=== PATIENT | male | born 1955 | race Caucasian/White ===

== ENCOUNTER 2018-08-26 09:41 | Outpatient (RCR) | payer MEDICARE, OTHER ==
--- NOTE | 2018-08-03 09:17 | NUR ---
07/31/18 Patient in today for Treatment team. Pt presents clean and neat, alert and oriented x 4. Pt in a pleasant mood. Pt states he has some anger issues at his new [facility] but that he ledy well with it. Pt states the program is helping him. Pt denies any suicidal thoughts at present time. Pt will continue with IOP 3x/week. Pt will follow up in one month. Treatment team concluded.
--- NOTE | 2018-08-06 08:54 | NUR ---
08/05/18 1245 As per patients RETIREMENT, pt will not be in tomorrow because he has an appointment to get a hearing aide.
--- NOTE | 2018-08-20 07:16 | NUR ---
08/18/18 0847 Patient in office stating he has sharp pain on his left side under his rib cage. Pt states it is a 5/10 when he moves. Pt states if he is sitting still, it doesn't bother him. Pt states the med tech at his [facility] is aware. Pt states it hasn't gotten worse. Pt's vitals: BP 131/81, P 84 rr 16 T 98.3 Pt skin color is warm pink and dry. Pt states he has constipation and hemorrhoids. Pt states med tech is aware and recieves medication for this. Pt advised to rest and if it becomes worse to make RN aware. RN states a call will be made to the [facility] to make Dr Eduardo aware. Will continue to monitor pt throughout the day. 1430 Call to [facility] to make Sybil aware of pt's symptoms. Sybil states that the pt has just arrived and he will be assessed. Will continue to follow up.
[~2018-08-26 09:41] MED LIST: ARICEPT10 MG PO; ASPIRIN LOW81 M1 PO; ATORVASTATIN CA40 MG PO; BENZTROPINE1 MG PO; BENZTROPINE2 MG PO; BUPROPION300 MG PO; CLOPIDOGREL75 MG PO; DEPAKOTE ER250 M1; DONEPEZIL HCL10 M1; GEODON60 MG PO; LEVOTHYROXIN75 MCG PO; MAPAP500 M1 PO; METOPROL TAR25 MG PO; MILK OF MAG30 ML/UDC PO; NITROGLYCERIN0.4 MG SL; PROTONIX20 M1 PO; SENEXON-S1 TAB PO; THERA M PLUS PO; TRAZODONE HCL100 MG PO; VENTOLIN HFA IN; VITAMIN A & D EX; ZIPRASIDONE HCL60 MG PO; [UNRECOGNIZED DRUG - OTHER] EX; [UNRECOGNIZED DRUG - OTHER] PO
[2018-09-22] MEDS ORDERED: CAL-GEST500 MG PO (11:26)
[2018-09-22] MEDS ORDERED: DULCOLAX5 MG PO (11:27)
[2018-09-22] MEDS ORDERED: MIRALAX3350 N1 PO (11:28)
[2018-09-22] MEDS ORDERED: NYSTATIN100000 UN1 TOP (11:29)
[2018-09-22] MEDS ORDERED: OYSTER SHELL CA1 TA3 PO (11:29)
[2018-09-22] MEDS ORDERED: PROMETHAZI6.25 MG/5 PO (11:31)
[2018-09-22] MEDS ORDERED: CARAFATE PO (11:31)
[2018-09-22] MEDS ORDERED: [UNRECOGNIZED DRUG - CODE] PO (11:32)
== END 2018-08-27 23:59 | disposition still patient (30) ==
LOC: PATHWAYS 09:41
PROVIDERS: ATTEND Specialist
DX: F31.60 Bipolar disorder, current episode mixed, unspecified (principal); F33.8 Other recurrent depressive disorders; F41.1 Generalized anxiety disorder